=== PATIENT | male | born 1965 | race Caucasian/White ===

== ENCOUNTER 2016-09-20 16:42 | Emergency (ER) | payer BC ==
--- NOTE | 2016-09-28 19:47 | ER ---
ADMIT: 09/20/2016 RM/LOC: ER [facility] MR#: [id number] [address] [id number] IZZY GUILLORY [address] [place] [address] Emergency Room Report SEX: M AGE: 51 : 1965 DATE: 09/20/2016 ADDENDUM: This patient comes to the ER because he has a net that he puts over his aviary. He was putting up the net, lost his balance, and his ring caught on a nail pulling part of his skin off his finger. On physical exam, he does have a gold ring on his left finger and a large laceration at the base of the finger on the palmar aspect. The ring was removed with ring cutters by the paramedics. I infiltrated the area with Marcaine and placed 6 interrupted sutures using 4-0 Prolene. I did do a digital block using Marcaine. X-ray was negative for any fractures. The area was cleaned with Ultradex and irrigated underneath the sink for 2 minutes. Stitches will be removed in 10 days. Follow up with his primary sooner or if any signs of infection. TRAY Whitten / Fredrick Hassan MD / juanito JOB #: [id number] CC: Fredrick Hassan MD, Attending Physician Garrick Barajas MD, Family Physician
== END 2016-09-20 18:25 | disposition home or self-care (01) ==
LOC: ER 16:42
PROC: 0HQGXZZ Repair Left Hand Skin, External Approach (ICD-10-PCS; principal; 2016-09-20)
DX: S61.215A Laceration without foreign body of left ring finger without damage to nail, initial encounter (principal); Z88.5 Allergy status to narcotic agent; Z98.890 Other specified postprocedural states; W23.0XXA Caught, crushed, jammed, or pinched between moving objects, initial encounter; Y92.009 Unspecified place in unspecified non-institutional (private) residence as the place of occurrence of the external cause